=== PATIENT | female | born 1975 | race Hispanic/Latino ===

== ENCOUNTER 2021-01-05 20:45 | Inpatient (IN) | payer MEDICAID, OTHER ==
[~2021-01-05] VITALS: Ht 162.6 cm; Wt 59.1 kg
[2021-01-05 21:02] VITALS: BP 218/121
[2021-01-05] MEDS ORDERED: FUROSEMIDE 40MG VIAL IV ONE (21:30)
[2021-01-05] MEDS ORDERED: ONDANSETRON 4MG INJ IVP ONE (21:30)
[2021-01-05] MEDS ORDERED: LABETALOL 20MG VIAL IV ONE (21:30)
[2021-01-05] MEDS ORDERED: NITROGLYCERIN 1GM OINT 1 INCH/1GM TD ONE (21:30)
[2021-01-05 21:32] LABS: BASOPHILS % (AUTO) 0.5 % (0.0-5.0); EOSINOPHILS % (AUTO) 0.4 % (0.0-8.0); HEMATOCRIT 28.2 % (36-48); LYMPHOCYTES % (AUTO) 7.3 % (21.0-51.0); MEAN CORPUSCULAR HEMOGLOBIN 28.2 pg (27.0-33.0); MEAN CORPUSCULAR HGB CONC 32.3 g/dL (32.0-36.0); MEAN CORPUSCULAR VOLUME 87.3 fL (79-99); NEUTROPHILS % (AUTO) 89.4 % (40.0-77.0); PLATELET COUNT (AUTO) 220 K/uL (130-400); RED BLOOD CELL COUNT(AUTO) 3.23 MIL/uL (4.00-5.50); RED CELL DISTRIBUTION WIDTH 17.5 % (11.0-15.5); WHITE BLOOD COUNT (AUTO) 8.3 K/uL (4.8-10.8)
[2021-01-05 21:44] LABS: INR 1.03 (0.85-1.15); PROTHROMBIN TIME 11.2 SEC (9.6-11.6)
[2021-01-05 21:55] LABS: B-TYPE NATRIURETIC PEPTIDE 3050 pg/mL (0-100)
[2021-01-05 22:06] LABS: ALBUMIN 2.7 g/dL (3.5-5.0); BILIRUBIN,TOTAL 0.4 mg/dL (0.2-1.0); CREATININE 4.3 mg/dL (0.5-1.5); POTASSIUM 5.2 mmol/L (3.5-5.1)
[2021-01-05] MEDS: HYDRALAZINE 20MG/ML VIAL IV SCH (22:17)
[2021-01-05 22:45] VITALS: BP 190/91
[2021-01-05 23:30] VITALS: BP 165/89
[2021-01-06] VITALS (10 sets, daily range): BP systolic 163–204; BP diastolic 86–106
[2021-01-06 00:13] LABS: ABG OXYGEN SATURATION 92.6 % (95.0-99.0); BASE EXCESS,VENOUS BLOOD GAS -5.9 (-2.0-3.0); HCO3,VENOUS BLOOD GAS 18.2 (21.0-28.0); PCO2,VENOUS BLOOD GAS 33 (32-45); PH,VENOUS BLOOD GAS 7.367 (7.350-7.450)
[2021-01-06 00:18] LABS: APPEARANCE,URINE Clear (CLEAR); BILIRUBIN,URINE Negative (NEGATIVE); COLOR,URINE Yellow (YELLOW); GLUCOSE, URINE (UA) 250 mg/dL (NEGATIVE); KETONES,URINE 15 mg/dL (NEGATIVE); LEUKOCYTE ESTERASE ,URINE Negative (NEGATIVE); NITRATE,URINE Negative (NEGATIVE); OCCULT BLOOD,URINE Small (NEGATIVE); PH,URINE 6.5 (5.0-8.0); PROTEIN,URINE >=1000 mg/dL (NEGATIVE); UROBILINOGEN,URINE 0.2 mg/dL (0.2-1.0)
[2021-01-06 00:29] LABS: BACTERIA,URINE Many /HPF (None Seen); SQUAMOUS EPITHELIAL CELL,UR 0-2 /HPF (0-2)
[2021-01-06] MEDS ORDERED: PROMETHAZINE HCL 25 MG/ML 1ML AMPULE IM ONE (02:00)
[2021-01-06] MEDS ORDERED: FUROSEMIDE 20MG VIAL IV SCH (02:30)
[2021-01-06] MEDS ORDERED: METOCLOPRAMIDE 10 MG/2 ML VIAL IVP PRN (02:30)
[2021-01-06] MEDS: ONDANSETRON 4MG INJ IV PRN ×2 (07:01→12:46)
[2021-01-06 07:07] LABS: POTASSIUM 5.2 mmol/L (3.5-5.1)
[2021-01-06 07:14] LABS: MAGNESIUM 1.8 mg/dL (1.80-2.40); PHOSPHORUS 5.5 mg/dL (2.5-4.9)
[2021-01-06 07:16] LABS: CREATININE 4.4 mg/dL (0.5-1.5)
[2021-01-06] MEDS: INSULIN HUMULIN R 100 UNIT/ML 3ML SQ SCH ×4 (07:30→21:00)
[2021-01-06] MEDS ORDERED: HEPARIN 5,000 UNIT VIAL ONE (07:51)
[2021-01-06] MEDS: HEPARIN 5,000 UNIT VIAL SQ SCH ×3 (07:54→21:10)
[2021-01-06] MEDS ORDERED: NA ZIRCON CYCLOSIL(LOKELMA 10GM) PO SCH (08:30)
[2021-01-06] MEDS ORDERED: FAMOTIDINE 20MG VIAL IV SCH (09:00)
[2021-01-06] MEDS: BUMETANIDE 1MG/4ML VIAL IVP SCH ×2 (11:10→18:38)
[2021-01-06] MEDS: AMLODIPINE 5 MG TAB PO SCH (11:50)
[2021-01-06] MEDS ORDERED: AMLODIPINE 5 MG TAB PO ONE (12:00)
[2021-01-06] MEDS ORDERED: HYDRALAZINE 25MG TABLET ONE (15:22)
[2021-01-06] MEDS ORDERED: HYDRALAZINE 25MG TABLET PO SCH (15:30)
[2021-01-06] MEDS ORDERED: NITROGLYCERIN 50MG/D5W 250ML 250 BOT IV SCH ×2 (19:00)
[2021-01-06] MEDS: HYDRALAZINE 25MG TABLET PO SCH (21:10)
[2021-01-06] MEDS: METOPROLOL TARTRATE 50 MG TAB PO SCH (21:10)
[2021-01-06] MEDS: HYDRALAZINE 20MG/ML VIAL IV SCH (21:30)
[2021-01-06] MEDS ORDERED: HYDR-4153 PO (22:39)
[2021-01-06] MEDS ORDERED: ISOS30TA92 PO (22:39)
[2021-01-06] MEDS ORDERED: CARV25TA PO (22:39)
[2021-01-07] VITALS (54 sets, daily range): BP systolic 140–188; BP diastolic 71–104
[2021-01-07] MEDS: ONDANSETRON 4MG INJ IV PRN ×2 (01:04→10:57)
[2021-01-07] MEDS: BUMETANIDE 1MG/4ML VIAL IVP SCH ×3 (03:28→20:45)
[2021-01-07] MEDS: INSULIN HUMULIN R 100 UNIT/ML 3ML SQ SCH ×6 (05:42→20:14)
[2021-01-07 06:20] LABS: BASOPHILS % (AUTO) 0.3 % (0.0-5.0); EOSINOPHILS % (AUTO) 0.1 % (0.0-8.0); HEMATOCRIT 21.8 % (36-48); LYMPHOCYTES % (AUTO) 11.5 % (21.0-51.0); MEAN CORPUSCULAR HEMOGLOBIN 27.6 pg (27.0-33.0); MEAN CORPUSCULAR HGB CONC 31.7 g/dL (32.0-36.0); MEAN CORPUSCULAR VOLUME 87.2 fL (79-99); MONOCYTES % (AUTO) 7.5 % (3.0-13.0); NEUTROPHILS % (AUTO) 80.1 % (40.0-77.0); PLATELET COUNT (AUTO) 193 K/uL (130-400); RED CELL DISTRIBUTION WIDTH 18.1 % (11.0-15.5)
[2021-01-07 06:32] LABS: % IRON SATURATION 34.2 % (22-44); CREATININE 4.9 mg/dL (0.5-1.5); PHOSPHORUS 5.6 mg/dL (2.5-4.9); POTASSIUM 4.3 mmol/L (3.5-5.1)
[2021-01-07 07:03] LABS: HEMATOCRIT 21.1 % (36-48)
[2021-01-07] MEDS ORDERED: PANTOPRAZOLE 40 MG TAB DR PO SCH (09:00)
[2021-01-07] MEDS ORDERED: EPOETIN ALFA-EPBX (ESRD) 10,000 UNIT/ML VIAL SQ SCH (09:00)
[2021-01-07] MEDS: HEPARIN 5,000 UNIT VIAL SQ SCH ×3 (09:00→20:12)
[2021-01-07] MEDS: METOPROLOL TARTRATE 50 MG TAB PO SCH (09:03)
[2021-01-07] MEDS: LISINOPRIL 40 MG TABLET PO SCH (09:03)
[2021-01-07] MEDS: HYDRALAZINE 25MG TABLET PO SCH ×3 (09:04→20:56)
[2021-01-07] MEDS: AMLODIPINE 5 MG TAB PO SCH (09:04)
[2021-01-07] MEDS ORDERED: LIDOCAINE HCL 1% MDV 50ML VIAL ONE (09:23)
[2021-01-07] MEDS ORDERED: HEPARIN 1,000 UNIT VIAL ONE (09:23)
[2021-01-07 12:28] LABS: HEMATOCRIT 26.7 % (36-48)
[2021-01-07 12:38] LABS: ALBUMIN 2.6 g/dL (3.5-5.0); CREATININE 4.9 mg/dL (0.5-1.5)
[2021-01-07 13:29] LABS: HEMOGLOBIN A1C 6.7 % (4.0-6.0)
[2021-01-07] MEDS ORDERED: LACTULOSE 20 GM/30 ML UDCUP ONE (16:33)
[2021-01-07] MEDS ORDERED: METOPROLOL TARTRATE 25 MG TAB PO SCH (21:00)
[2021-01-08] VITALS (28 sets, daily range): BP systolic 123–181; BP diastolic 67–98
[2021-01-08] MEDS: BUMETANIDE 1MG/4ML VIAL IVP SCH ×3 (03:10→18:06)
[2021-01-08 04:02] LABS: BASOPHILS % (AUTO) 0.7 % (0.0-5.0); EOSINOPHILS % (AUTO) 0.3 % (0.0-8.0); HEMATOCRIT 23.4 % (36-48); LYMPHOCYTES % (AUTO) 13.6 % (21.0-51.0); MEAN CORPUSCULAR HEMOGLOBIN 28.3 pg (27.0-33.0); MEAN CORPUSCULAR HGB CONC 32.5 g/dL (32.0-36.0); MONOCYTES % (AUTO) 6.7 % (3.0-13.0); NEUTROPHILS % (AUTO) 78.4 % (40.0-77.0); PLATELET COUNT (AUTO) 174 K/uL (130-400); RED BLOOD CELL COUNT(AUTO) 2.69 MIL/uL (4.00-5.50); RED CELL DISTRIBUTION WIDTH 17.3 % (11.0-15.5); WHITE BLOOD COUNT (AUTO) 7.4 K/uL (4.8-10.8)
[2021-01-08 04:22] LABS: CREATININE 3.7 mg/dL (0.5-1.5); POTASSIUM 3.7 mmol/L (3.5-5.1)
[2021-01-08] MEDS: INSULIN HUMULIN R 100 UNIT/ML 3ML SQ SCH ×4 (06:03→20:39)
[2021-01-08 08:14] LABS: HEPATITIS Bs ANTIGEN SCREEN P Negative (Negative)
[2021-01-08] MEDS: HEPARIN 5,000 UNIT VIAL SQ SCH ×3 (09:00→20:46)
[2021-01-08] MEDS: AMLODIPINE 5 MG TAB PO SCH (15:02)
[2021-01-08] MEDS: LISINOPRIL 40 MG TABLET PO SCH (15:06)
[2021-01-08] MEDS: HYDRALAZINE 25MG TABLET PO SCH ×2 (15:11→20:48)
[2021-01-08] MEDS: METOPROLOL TARTRATE 50 MG TAB PO SCH (20:47)
[2021-01-09] VITALS (21 sets, daily range): BP systolic 118–160; BP diastolic 52–92
[2021-01-09] MEDS: BUMETANIDE 1MG/4ML VIAL IVP SCH ×3 (02:26→18:08)
[2021-01-09] MEDS: INSULIN HUMULIN R 100 UNIT/ML 3ML SQ SCH ×4 (06:44→20:09)
[2021-01-09] MEDS: HYDRALAZINE 25MG TABLET PO SCH ×3 (10:00→20:09)
[2021-01-09] MEDS: LISINOPRIL 40 MG TABLET PO SCH (10:01)
[2021-01-09] MEDS: METOPROLOL TARTRATE 50 MG TAB PO SCH ×2 (10:01→20:09)
[2021-01-09] MEDS: AMLODIPINE 5 MG TAB PO SCH (10:01)
[2021-01-09] MEDS: HEPARIN 5,000 UNIT VIAL SQ SCH ×3 (10:04→20:31)
[2021-01-09] MEDS ORDERED: 0.9%NACL 1000ML 1,000 ML IV PRN (17:30)
[2021-01-10] MEDS: BUMETANIDE 1MG/4ML VIAL IVP SCH ×3 (02:25→18:11)
[2021-01-10 04:00] VITALS: BP 129/72
[2021-01-10 04:22] LABS: MEAN CORPUSCULAR HEMOGLOBIN 28.3 pg (27.0-33.0); MEAN CORPUSCULAR HGB CONC 33.3 g/dL (32.0-36.0); MEAN CORPUSCULAR VOLUME 84.9 fL (79-99); PLATELET COUNT (AUTO) 201 K/uL (130-400); RED BLOOD CELL COUNT(AUTO) 3.18 MIL/uL (4.00-5.50); RED CELL DISTRIBUTION WIDTH 16.4 % (11.0-15.5); WHITE BLOOD COUNT (AUTO) 5.8 K/uL (4.8-10.8)
[2021-01-10 04:46] LABS: PHOSPHORUS 3.3 mg/dL (2.5-4.9); POTASSIUM 3.4 mmol/L (3.5-5.1)
[2021-01-10 05:49] LABS: EOSINOPHILS % (MANUAL) 2 % (1-6); LYMPHOCYTES % (MANUAL) 18 % (22-44); MAN.DIFF COMMENT-IMPRESSION MANUAL DIFFERENTIAL; MONOCYTES % (MANUAL) 3 % (2-9); SEGMENTED NEUTROPHILS % 77 % (40-70)
[2021-01-10 05:51] LABS: PLATELET MORPHOLOGY COMMENT ADEQUATE
[2021-01-10] MEDS: INSULIN HUMULIN R 100 UNIT/ML 3ML SQ SCH ×4 (05:57→20:55)
[2021-01-10] MEDS ORDERED: KCL 20 MEQ ERTAB PO ONE (06:00)
[2021-01-10 07:41] VITALS: BP 121/62
[2021-01-10] MEDS: AMLODIPINE 5 MG TAB PO SCH (08:59)
[2021-01-10] MEDS: LISINOPRIL 40 MG TABLET PO SCH (09:00)
[2021-01-10] MEDS: HEPARIN 5,000 UNIT VIAL SQ SCH ×3 (09:00→20:54)
[2021-01-10] MEDS: HYDRALAZINE 25MG TABLET PO SCH ×3 (09:00→20:35)
[2021-01-10] MEDS: METOPROLOL TARTRATE 50 MG TAB PO SCH ×2 (09:00→20:49)
[2021-01-10] MEDS: CEPHALEXIN 250 MG CAPSULE PO SCH ×3 (10:37→20:56)
[2021-01-10 10:53] VITALS: BP 107/67
[2021-01-10 16:00] VITALS: BP 106/65
[2021-01-10 20:18] VITALS: BP 127/73
[2021-01-10 23:43] VITALS: BP 132/74
[2021-01-11] VITALS (27 sets, daily range): BP systolic 102–148; BP diastolic 60–81
[2021-01-11] MEDS: BUMETANIDE 1MG/4ML VIAL IVP SCH ×3 (03:50→18:21)
[2021-01-11] MEDS: CEPHALEXIN 250 MG CAPSULE PO SCH ×4 (04:00→19:35)
[2021-01-11 05:02] LABS: BASOPHILS % (AUTO) 0.4 % (0.0-5.0); EOSINOPHILS % (AUTO) 2.1 % (0.0-8.0); HEMATOCRIT 28.7 % (36-48); LYMPHOCYTES % (AUTO) 15.6 % (21.0-51.0); MEAN CORPUSCULAR HEMOGLOBIN 27.8 pg (27.0-33.0); MEAN CORPUSCULAR HGB CONC 32.1 g/dL (32.0-36.0); MEAN CORPUSCULAR VOLUME 86.7 fL (79-99); MONOCYTES % (AUTO) 6.6 % (3.0-13.0); NEUTROPHILS % (AUTO) 74.9 % (40.0-77.0); PLATELET COUNT (AUTO) 191 K/uL (130-400); RED BLOOD CELL COUNT(AUTO) 3.31 MIL/uL (4.00-5.50); RED CELL DISTRIBUTION WIDTH 16.4 % (11.0-15.5)
[2021-01-11 05:10] LABS: CREATININE 4.1 mg/dL (0.5-1.5); POTASSIUM 3.7 mmol/L (3.5-5.1)
[2021-01-11 05:11] LABS: INR 0.97 (0.85-1.15); PROTHROMBIN TIME 10.6 SEC (9.6-11.6)
[2021-01-11 05:12] LABS: PARTIAL THROMBOPLASTIN TIME 30.2 SEC (26.3-35.5)
[2021-01-11] MEDS: INSULIN HUMULIN R 100 UNIT/ML 3ML SQ SCH ×4 (07:06→20:14)
[2021-01-11] MEDS ORDERED: BIVALIRUDIN 250 MG/VIAL IV ONE (07:20)
[2021-01-11] MEDS ORDERED: HEPARIN 10,000 UNIT/10ML (1,000 UNIT/ML) VIAL ONE (07:20)
[2021-01-11] MEDS ORDERED: NITROGLYCERIN 2 MG VIAL IV ONE (07:20)
[2021-01-11] MEDS ORDERED: IOHEXOL-350 50ML VIAL IV ONE ×2 (07:20→09:11)
[2021-01-11] MEDS ORDERED: IOHEXOL 350 MG/ML 100ML INFUS..BTL IV ONE (07:21)
[2021-01-11] MEDS ORDERED: MIDAZOLAM HCL 1 MG/ML 2ML VIAL ONE (07:21)
[2021-01-11] MEDS ORDERED: LIDOCAINE HCL 400MG/20ML VIAL ONE (07:21)
[2021-01-11] MEDS ORDERED: LABETALOL 20MG VIAL IV ONE (09:02)
[2021-01-11] MEDS: LISINOPRIL 40 MG TABLET PO SCH (10:40)
[2021-01-11] MEDS: HYDRALAZINE 25MG TABLET PO SCH ×3 (10:40→19:35)
[2021-01-11] MEDS: AMLODIPINE 5 MG TAB PO SCH (10:40)
[2021-01-11] MEDS: METOPROLOL TARTRATE 50 MG TAB PO SCH ×2 (10:40→19:35)
[2021-01-11] MEDS: 0.9%NACL 10ML VIAL IVP SCH ×2 (10:41→18:21)
[2021-01-11] MEDS: HEPARIN 5,000 UNIT VIAL IV PRN (18:28)
[2021-01-12] VITALS: BP 108/51
[2021-01-12] MEDS: 0.9%NACL 10ML VIAL IVP SCH ×3 (01:14→18:00)
[2021-01-12] MEDS: BUMETANIDE 1MG/4ML VIAL IVP SCH (01:51)
[2021-01-12] MEDS: CEPHALEXIN 250 MG CAPSULE PO SCH ×3 (03:05→19:31)
[2021-01-12 04:00] VITALS: BP 110/52
[2021-01-12 05:34] LABS: HEMATOCRIT 28.1 % (36-48); MEAN CORPUSCULAR HEMOGLOBIN 27.7 pg (27.0-33.0); MEAN CORPUSCULAR HGB CONC 31.7 g/dL (32.0-36.0); MEAN CORPUSCULAR VOLUME 87.5 fL (79-99); RED BLOOD CELL COUNT(AUTO) 3.21 MIL/uL (4.00-5.50); RED CELL DISTRIBUTION WIDTH 16.8 % (11.0-15.5)
[2021-01-12] MEDS: INSULIN HUMULIN R 100 UNIT/ML 3ML SQ SCH ×4 (05:35→20:11)
[2021-01-12 05:48] LABS: CREATININE 3.2 mg/dL (0.5-1.5); POTASSIUM 3.8 mmol/L (3.5-5.1)
[2021-01-12 08:02] VITALS: BP 112/56
[2021-01-12] MEDS: HYDRALAZINE 25MG TABLET PO SCH (08:26)
[2021-01-12] MEDS: AMLODIPINE 5 MG TAB PO SCH (08:26)
[2021-01-12] MEDS: METOPROLOL TARTRATE 50 MG TAB PO SCH ×2 (08:26→19:31)
[2021-01-12] MEDS: LISINOPRIL 40 MG TABLET PO SCH (08:27)
[2021-01-12 11:51] VITALS: BP 94/56
[2021-01-12 16:29] VITALS: BP 128/70
[2021-01-12 20:00] VITALS: BP 128/67
[2021-01-13] VITALS (23 sets, daily range): BP systolic 101–141; BP diastolic 52–79
[2021-01-13] MEDS: 0.9%NACL 10ML VIAL IVP SCH ×4 (01:34→20:30)
[2021-01-13] MEDS: CEPHALEXIN 250 MG CAPSULE PO SCH ×4 (03:34→22:18)
[2021-01-13] MEDS: INSULIN HUMULIN R 100 UNIT/ML 3ML SQ SCH ×4 (06:02→20:29)
[2021-01-13] MEDS: LISINOPRIL 40 MG TABLET PO SCH (08:42)
[2021-01-13] MEDS: METOPROLOL TARTRATE 50 MG TAB PO SCH ×2 (08:42→20:28)
[2021-01-13] MEDS: HEPARIN 5,000 UNIT VIAL IV PRN (13:20)
[2021-01-14] MEDS: CEPHALEXIN 250 MG CAPSULE PO SCH ×4 (03:18→21:31)
[2021-01-14 03:38] VITALS: BP 125/77
[2021-01-14] MEDS: INSULIN HUMULIN R 100 UNIT/ML 3ML SQ SCH ×4 (05:59→21:31)
[2021-01-14 08:00] VITALS: BP 122/58
[2021-01-14] MEDS: METOPROLOL TARTRATE 50 MG TAB PO SCH ×2 (09:24→21:31)
[2021-01-14] MEDS: LISINOPRIL 40 MG TABLET PO SCH (09:24)
[2021-01-14] MEDS: 0.9%NACL 10ML VIAL IVP SCH ×2 (09:24→21:33)
[2021-01-14 09:35] LABS: HEMATOCRIT 33.2 % (36-48); MEAN CORPUSCULAR HEMOGLOBIN 27.6 pg (27.0-33.0); MEAN CORPUSCULAR HGB CONC 31.6 g/dL (32.0-36.0); MEAN CORPUSCULAR VOLUME 87.4 fL (79-99); RED BLOOD CELL COUNT(AUTO) 3.8 MIL/uL (4.00-5.50); RED CELL DISTRIBUTION WIDTH 16.2 % (11.0-15.5); WHITE BLOOD COUNT (AUTO) 7.5 K/uL (4.8-10.8)
[2021-01-14 09:44] LABS: CREATININE 4.4 mg/dL (0.5-1.5); POTASSIUM 4.2 mmol/L (3.5-5.1)
[2021-01-14 12:00] VITALS: BP 130/75
[2021-01-14 16:00] VITALS: BP 154/82
[2021-01-14 19:54] VITALS: BP 136/65
[2021-01-14 23:32] VITALS: BP 139/68
[2021-01-15] VITALS (20 sets, daily range): BP systolic 126–155; BP diastolic 75–88
[2021-01-15] MEDS: CEPHALEXIN 250 MG CAPSULE PO SCH ×4 (04:00→22:00)
[2021-01-15 04:43] LABS: HEMATOCRIT 29.8 % (36-48); MEAN CORPUSCULAR HEMOGLOBIN 27.5 pg (27.0-33.0); MEAN CORPUSCULAR HGB CONC 31.9 g/dL (32.0-36.0); MEAN CORPUSCULAR VOLUME 86.4 fL (79-99); RED BLOOD CELL COUNT(AUTO) 3.45 MIL/uL (4.00-5.50); RED CELL DISTRIBUTION WIDTH 15.9 % (11.0-15.5); WHITE BLOOD COUNT (AUTO) 7.3 K/uL (4.8-10.8)
[2021-01-15 04:55] LABS: POTASSIUM 3.9 mmol/L (3.5-5.1)
[2021-01-15 04:58] LABS: INR 0.96 (0.85-1.15); PROTHROMBIN TIME 10.5 SEC (9.6-11.6)
[2021-01-15 05:00] LABS: PARTIAL THROMBOPLASTIN TIME 27.1 SEC (26.3-35.5)
[2021-01-15] MEDS: INSULIN HUMULIN R 100 UNIT/ML 3ML SQ SCH ×4 (07:30→21:00)
[2021-01-15] MEDS: LISINOPRIL 40 MG TABLET PO SCH (09:00)
[2021-01-15] MEDS: METOPROLOL TARTRATE 50 MG TAB PO SCH ×2 (09:26→21:00)
[2021-01-15] MEDS: 0.9%NACL 10ML VIAL IVP SCH ×3 (09:27→23:00)
[2021-01-15] MEDS ORDERED: CEFAZOLIN SODIUM 1 GM VIAL IVP PRN (15:00)
[2021-01-15] MEDS ORDERED: PROPOFOL 10 MG/ML 20ML VIAL IV ONE (20:33)
[2021-01-15] MEDS ORDERED: LIDOCAINE PF 100MG/5ML (2%) SYRINGE 5ML ONE (20:33)
[2021-01-15] MEDS ORDERED: MIDAZOLAM HCL 1 MG/ML 2ML VIAL ONE (20:33)
[2021-01-15] MEDS ORDERED: CEFAZOLIN SODIUM 1 GM VIAL ONE ×2 (20:59→21:30)
[2021-01-15] MEDS ORDERED: PROTAMINE SULFATE 10 MG/ML 5 ML VIAL ONE (21:29)
[2021-01-15] MEDS ORDERED: BUPIVACAINE/PF 0.5% 30ML VIAL ONE (21:33)
[2021-01-15] MEDS ORDERED: LIDOCAINE HCL 1% 20 ML VIAL ONE (21:33)
[2021-01-15] MEDS ORDERED: ONDANSETRON 4MG INJ ONE (21:37)
[2021-01-15] MEDS ORDERED: PHENYLEPHRINE HCL 10 MG/ML 1ML VIAL IV ONE (21:38)
[2021-01-15] MEDS ORDERED: TRAMADOL HCL 50 MG TABLET PO PRN ×2 (22:30)
[2021-01-15] MEDS ORDERED: ACETAMINOPHEN 325 MG TAB PO PRN (22:30)
[2021-01-16] VITALS (23 sets, daily range): BP systolic 95–170; BP diastolic 64–87
[2021-01-16] MEDS: CEPHALEXIN 250 MG CAPSULE PO SCH ×4 (05:24→22:53)
[2021-01-16] MEDS: INSULIN HUMULIN R 100 UNIT/ML 3ML SQ SCH ×4 (05:43→20:53)
[2021-01-16 06:11] LABS: BASOPHILS % (AUTO) 0.9 % (0.0-5.0); EOSINOPHILS % (AUTO) 2.1 % (0.0-8.0); HEMATOCRIT 31.2 % (36-48); LYMPHOCYTES % (AUTO) 15.1 % (21.0-51.0); MEAN CORPUSCULAR HEMOGLOBIN 27.6 pg (27.0-33.0); MEAN CORPUSCULAR HGB CONC 31.7 g/dL (32.0-36.0); MEAN CORPUSCULAR VOLUME 86.9 fL (79-99); MONOCYTES % (AUTO) 6.4 % (3.0-13.0); NEUTROPHILS % (AUTO) 75.1 % (40.0-77.0); PLATELET COUNT (AUTO) 225 K/uL (130-400); RED BLOOD CELL COUNT(AUTO) 3.59 MIL/uL (4.00-5.50); RED CELL DISTRIBUTION WIDTH 15.8 % (11.0-15.5)
[2021-01-16 06:26] LABS: CREATININE 5.4 mg/dL (0.5-1.5); POTASSIUM 4.5 mmol/L (3.5-5.1)
[2021-01-16] MEDS: METOPROLOL TARTRATE 50 MG TAB PO SCH ×2 (09:00→20:53)
[2021-01-16] MEDS: LISINOPRIL 40 MG TABLET PO SCH (09:00)
[2021-01-16] MEDS: 0.9%NACL 10ML VIAL IVP SCH ×2 (10:00→17:11)
[2021-01-16] MEDS ORDERED: HEPARIN 5,000 UNIT VIAL SQ SCH (13:00)
[2021-01-17 00:36] VITALS: BP 126/70
[2021-01-17] MEDS: 0.9%NACL 10ML VIAL IVP SCH ×2 (02:57→19:36)
[2021-01-17 04:00] VITALS: BP 123/72
[2021-01-17] MEDS: CEPHALEXIN 250 MG CAPSULE PO SCH ×4 (06:09→21:36)
[2021-01-17] MEDS: INSULIN HUMULIN R 100 UNIT/ML 3ML SQ SCH ×4 (06:09→22:30)
[2021-01-17 06:22] LABS: BASOPHILS % (AUTO) 0.9 % (0.0-5.0); EOSINOPHILS % (AUTO) 2.2 % (0.0-8.0); HEMATOCRIT 30.4 % (36-48); LYMPHOCYTES % (AUTO) 18.8 % (21.0-51.0); MEAN CORPUSCULAR HEMOGLOBIN 27.6 pg (27.0-33.0); MEAN CORPUSCULAR HGB CONC 31.6 g/dL (32.0-36.0); MEAN CORPUSCULAR VOLUME 87.4 fL (79-99); MONOCYTES % (AUTO) 10.1 % (3.0-13.0); NEUTROPHILS % (AUTO) 67.6 % (40.0-77.0); PLATELET COUNT (AUTO) 233 K/uL (130-400); RED BLOOD CELL COUNT(AUTO) 3.48 MIL/uL (4.00-5.50); RED CELL DISTRIBUTION WIDTH 15.7 % (11.0-15.5); WHITE BLOOD COUNT (AUTO) 7.7 K/uL (4.8-10.8)
[2021-01-17 06:47] LABS: CREATININE 4.1 mg/dL (0.5-1.5); POTASSIUM 4.3 mmol/L (3.5-5.1)
[2021-01-17 08:55] VITALS: BP 111/68
[2021-01-17] MEDS: LISINOPRIL 40 MG TABLET PO SCH (09:34)
[2021-01-17] MEDS: METOPROLOL TARTRATE 50 MG TAB PO SCH ×2 (09:35→21:35)
[2021-01-17 13:03] VITALS: BP 110/75
[2021-01-17 17:08] VITALS: BP 151/77
[2021-01-17 20:00] VITALS: BP 149/85
[2021-01-18] VITALS (22 sets, daily range): BP systolic 102–179; BP diastolic 47–109
[2021-01-18] MEDS: 0.9%NACL 10ML VIAL IVP SCH ×4 (02:00→22:02)
[2021-01-18 06:06] LABS: POTASSIUM 3.9 mmol/L (3.5-5.1)
[2021-01-18 06:10] LABS: BASOPHILS % (AUTO) 0.9 % (0.0-5.0); EOSINOPHILS % (AUTO) 2.7 % (0.0-8.0); HEMATOCRIT 28.3 % (36-48); MEAN CORPUSCULAR HEMOGLOBIN 27.7 pg (27.0-33.0); MEAN CORPUSCULAR HGB CONC 32.2 g/dL (32.0-36.0); MEAN CORPUSCULAR VOLUME 86.3 fL (79-99); MONOCYTES % (AUTO) 8.5 % (3.0-13.0); NEUTROPHILS % (AUTO) 70.6 % (40.0-77.0); PLATELET COUNT (AUTO) 235 K/uL (130-400); RED BLOOD CELL COUNT(AUTO) 3.28 MIL/uL (4.00-5.50); RED CELL DISTRIBUTION WIDTH 15.3 % (11.0-15.5); WHITE BLOOD COUNT (AUTO) 6.6 K/uL (4.8-10.8)
[2021-01-18] MEDS: INSULIN HUMULIN R 100 UNIT/ML 3ML SQ SCH ×4 (07:18→21:00)
[2021-01-18] MEDS: METOPROLOL TARTRATE 50 MG TAB PO SCH ×2 (08:29→22:01)
[2021-01-18] MEDS: LISINOPRIL 40 MG TABLET PO SCH (08:30)
[2021-01-18] MEDS: HEPARIN 5,000 UNIT VIAL IV PRN (20:03)
[2021-01-19 01:49] VITALS: BP 115/75
[2021-01-19 04:40] VITALS: BP 122/74
[2021-01-19] MEDS: INSULIN HUMULIN R 100 UNIT/ML 3ML SQ SCH ×2 (05:46→12:13)
[2021-01-19] MEDS: METOPROLOL TARTRATE 50 MG TAB PO SCH (09:32)
[2021-01-19] MEDS: 0.9%NACL 10ML VIAL IVP SCH (09:33)
[2021-01-19] MEDS: LISINOPRIL 40 MG TABLET PO SCH (09:33)
[2021-01-19 09:38] VITALS: BP 123/73
[2021-01-19 11:47] VITALS: BP 106/67
[2021-01-19 16:39] VITALS: BP 152/82
== END 2021-01-19 18:05 | disposition home or self-care (01) | DRG 444 ==
LOC: EDH 20:45 → EDHIP 20:46 → 2DH 01-07 01:18 → 3BH 01-08 21:43
PROVIDERS: ADMIT Internal Medicine; ATTEND Internal Medicine
PROC: 5A1D70Z Performance of Urinary Filtration, Intermittent, Less than 6 Hours Per Day (ICD-10-PCS; 2021-01-07)
PROC: 0JH63XZ Insertion of Tunneled Vascular Access Device into Chest Subcutaneous Tissue and Fascia, Percutaneous Approach (ICD-10-PCS; 2021-01-07)
PROC: 02H633Z Insertion of Infusion Device into Right Atrium, Percutaneous Approach (ICD-10-PCS; 2021-01-07)
PROC: B5181ZA Fluoroscopy of Superior Vena Cava using Low Osmolar Contrast, Guidance (ICD-10-PCS; 2021-01-07)
PROC: B548ZZA Ultrasonography of Superior Vena Cava, Guidance (ICD-10-PCS; 2021-01-07)
PROC: 5A1D70Z Performance of Urinary Filtration, Intermittent, Less than 6 Hours Per Day (ICD-10-PCS; 2021-01-08)
PROC: 5A1D70Z Performance of Urinary Filtration, Intermittent, Less than 6 Hours Per Day (ICD-10-PCS; 2021-01-09)
PROC: 5A1D70Z Performance of Urinary Filtration, Intermittent, Less than 6 Hours Per Day (ICD-10-PCS; 2021-01-11)
PROC: 4A023N7 Measurement of Cardiac Sampling and Pressure, Left Heart, Percutaneous Approach (ICD-10-PCS; 2021-01-11)
PROC: B2111ZZ Fluoroscopy of Multiple Coronary Arteries using Low Osmolar Contrast (ICD-10-PCS; 2021-01-11)
PROC: B2151ZZ Fluoroscopy of Left Heart using Low Osmolar Contrast (ICD-10-PCS; 2021-01-11)
PROC: B41F1ZZ Fluoroscopy of Right Lower Extremity Arteries using Low Osmolar Contrast (ICD-10-PCS; 2021-01-11)
PROC: 5A1D70Z Performance of Urinary Filtration, Intermittent, Less than 6 Hours Per Day (ICD-10-PCS; 2021-01-13)
PROC: 03180ZD Bypass Left Brachial Artery to Upper Arm Vein, Open Approach (ICD-10-PCS; principal; 2021-01-15 21:07)
PROC: 5A1D70Z Performance of Urinary Filtration, Intermittent, Less than 6 Hours Per Day (ICD-10-PCS; 2021-01-16)
PROC: 5A1D70Z Performance of Urinary Filtration, Intermittent, Less than 6 Hours Per Day (ICD-10-PCS; 2021-01-18)
DX: N17.9 Acute kidney failure, unspecified (principal); I27.20 Pulmonary hypertension, unspecified; I50.43 Acute on chronic combined systolic (congestive) and diastolic (congestive) heart failure; I13.2 Hypertensive heart and chronic kidney disease with heart failure and with stage 5 chronic kidney disease, or end stage renal disease; E11.22 Type 2 diabetes mellitus with diabetic chronic kidney disease; E87.5 Hyperkalemia; I42.0 Dilated cardiomyopathy; N18.6 End stage renal disease; I16.1 Hypertensive emergency; Z68.29 Body mass index [BMI] 29.0-29.9, adult; E66.3 Overweight; E78.5 Hyperlipidemia, unspecified; D63.1 Anemia in chronic kidney disease; E78.00 Pure hypercholesterolemia, unspecified; I25.10 Atherosclerotic heart disease of native coronary artery without angina pectoris; Z99.2 Dependence on renal dialysis; Z56.0 Unemployment, unspecified; Z79.899 Other long term (current) drug therapy; Z91.19 Patient's noncompliance with other medical treatment and regimen; Z20.822 Contact with and (suspected) exposure to COVID-19
CPT/HCPCS: 36415; 36558; 70450; 71045; 76770; 77001; 80048; 80053; 80061; 81001; 82040; 82550; 82565; 82728; 82803; 82948; 83036; 83540; 83550; 83605; 83690; 83735; 83874; 83880; 84100; 84484; 84520; 85014; 85018; 85025; 85027; 85378; 85610; 85730; 86701; 86704; 86706; 86850; 86900; 86901; 87040; 87077; 87088; 87186; 87340; 87390; 87635; 90935; 93005; 93306; 93458; 93971; 99156; 99157; C1750; C1760; C1894; C9803; G0378; J0360; J0583; J0690; J1644; J1815; J1940; J2001; J2250; J2370; J2405; J2704; J2720; J2765; J3490; Q9967